=== PATIENT | male | born 1960 | race Caucasian/White ===

== ENCOUNTER 2017-03-06 12:27 | Emergency (ER) | payer OTHER ==
[2017-03-06 15:39] LABS: #Basophils 0.1 thou/uL (0.0-0.2); #Eosinphils 0.3 thou/uL (0.0-0.7); #Lymphocytes 1.3 thou/uL (1.20-3.40); #Monocytes 0.7 thou/uL (0.11-0.59); #Neutrophils 4.7 thou/uL (1.40-6.50); %Basophils 1.1 % (0.0-1.0); %Eosinophils 4.8 % (0.0-10.0); %Lymphocytes 18.8 % (21.0-51.0); %Monocytes 9.8 % (0.0-10.0); Hematocrit 41.1 % (42.0-52.0); Mean Platelet Volume 7.1 fL (7.4-10.4); Red Blood Cell (RBC) Count 4.38 mill/uL (4.70-6.10); White Blood Cell (WBC) Count 7.1 thou/uL (4.8-10.8)
== END 2017-03-06 16:45 | disposition home or self-care (01) ==
LOC: ERS 12:27
DX: C81.90 Hodgkin lymphoma, unspecified, unspecified site (principal); F17.210 Nicotine dependence, cigarettes, uncomplicated; I10 Essential (primary) hypertension; Z79.899 Other long term (current) drug therapy
CPT/HCPCS: 36415; 85025; 99283